=== PATIENT | male | born 1960 | race African-American/Black ===

== ENCOUNTER 2019-02-20 11:32 | Emergency (ER) | payer SELFPAY ==
[~2019-02-20] VITALS: Ht 172.7 cm; Wt 77.1 kg
--- NOTE | 2019-02-20 11:59 | NUR ---
ERMD AT BEDSIDE FOR MSE
--- NOTE | 2019-02-20 12:24 | NUR ---
JOSE D JUNE TECH AT BEDSIDE FOR SCAN
--- NOTE | 2019-02-20 12:56 | NUR ---
Patient discharged to home in stable conditon. Written and verbal after care instructions given. Patient verbalizes understanding of instructions. Patient ambulated with stable gait.
[2019-02-20 13:40] VITALS: BP 148/73
== END 2019-02-20 12:56 | disposition home or self-care (01) ==
LOC: ER 11:32
DX: M79.604 Pain in right leg (principal); I25.2 Old myocardial infarction
CPT/HCPCS: A4663